=== PATIENT | female | born 1955 | race Caucasian/White ===

== ENCOUNTER 2020-04-19 21:36 | Emergency (ER) | payer MEDICARE, OTHER ==
[2020-04-19] MEDS ORDERED: ONDANSETRON INJ 4 MG/2 ML VIAL IV ONE (21:47)
[2020-04-19] MEDS ORDERED: SODIUM CHLORIDE 0.9% (FLUSH) 10 ML SYG IV PRN (21:47)
[2020-04-19] MEDS ORDERED: SODIUM CHLORIDE 0.9% 1000ML 1,000 ML IVS PRN (21:47)
[2020-04-19] MEDS ORDERED: DICYCLOMINE HCL INJ 20 MG/2 ML AMP IM ONE (21:49)
[2020-04-19] MEDS ORDERED: PROMETHAZINE HCL INJ 12.5 MG in SODIUM CHLORIDE 0.9% 50ML 50 ML IVPB ONE (21:53)
--- NOTE | 2020-04-19 22:11 | ED.PDOC ---
History of Present Illness - General Chief Complaint: GI Problem Stated Complaint: abd cramping, n/v Time Seen by Provider: 04/19/20 21:46 Information Source: patient, RN notes reviewed, Vital Signs reviewed Exam Limitations: no limitations - History of Present Illness Initial Comments: 65 y/o female with 2 days of copious diarrhea, foul smelling. She has been on antibiotics in the last 6 weeks. Nausea but no fever Abdominal Pain Onset Location: generalized abdomen Pain Radiation: no radiation Quality: moderate, cramping, intermittent Timing/Duration: days - 2 days Improving Factors: nothing Worsening Factors: nothing Associated Symptoms: diarrhea, nausea/vomiting, syncope, weakness Review of Systems - Review of Systems Constitutional: States: weakness EENTM: States: no symptoms reported Respiratory: States: no symptoms reported Cardiology: States: no symptoms reported Gastrointestinal/Abdominal: States: see HPI, abdominal pain, diarrhea, nausea Genitourinary: States: no symptoms reported Musculoskeletal: States: no symptoms reported Skin: States: no symptoms reported Neurological: States: no symptoms reported Family Medical History - Family History Mother Family History: Unknown Physical Exam - Physical Exam General Appearance: Obvious distress, Ill Appearing Eyes, Ears, Nose, Throat Exam: PERRL/EOMI, normal ENT inspection, pharynx normal Neck: non-tender, full range of motion, supple, normal inspection Respiratory: chest non-tender, lungs clear, normal breath sounds, no respiratory distress Cardiovascular/Chest: normal peripheral pulses, regular rate, rhythm, no murmur Peripheral Pulses: No deficit Gastrointestinal/Abdominal: normal bowel sounds, soft, tenderness Back Exam: normal inspection, no CVA tenderness Extremity: normal range of motion, non-tender, normal inspection, no pedal edema Neurologic: no motor/sensory deficits, alert, normal mood/affect, oriented x 3 Progress - Progress Progress: 04/19/20 23:47 Mrs Perse feels much better. She had been dx with strep pharyngitis and treated with a z pack 3 weeks ago. I will put her on flagyl and levaquin for 7 days - EKG/XRAY/CT EKG: Sinus, nonspecific ST T wave Chg Comments: prolonged QT, no LEOLA, QTc 466 Departure - Departure Clinical Impression: Enterocolitis due to Clostridioides difficile Diarrhea Qualifiers: Diarrhea type: presumed infectious Qualified Code(s): R19.7 - Diarrhea, unspecified Time of Disposition: 23:49 Disposition: Discharge to Home or Self Care Condition: Good Departure Forms: ED Discharge - Pt. Copy, Patient Portal Self Enrollment Referrals: RIAN ROJAS [Primary Care Provider] - 1-2 Weeks Prescriptions: Dicyclomine HCl [Bentyl] 20 mg PO Q6HRS PRN #20 tab PRN Reason: Abdominal Cramping metroNIDAZOLE [Flagyl] 500 mg PO BID #14 tab Levofloxacin [Levaquin] 750 mg PO DAILY #7 tablet Promethazine Tab [Phenergan Tablet] 0 mg PO .Q4H PRN #12 tab PRN Reason: Nausea -- Breakthrough Home Medications: Ambulatory Orders Dicyclomine HCl [Bentyl] 20 mg PO Q6HRS PRN #20 tab 04/19/20 Levofloxacin [Levaquin] 750 mg PO DAILY #7 tablet 04/19/20 Promethazine Tab [Phenergan Tablet] 0 mg PO .Q4H PRN #12 tab 04/19/20 metroNIDAZOLE [Flagyl] 500 mg PO BID #14 tab 04/19/20
--- NOTE | 2020-04-19 23:25 | CT ---
PROCEDURE: CT Abdomen/Pelvis w/Contrast CLINICAL HISTORY: 65 years Female abd pain and foul-smelling diarrhea TECHNIQUE: Contiguous axial images obtained through the abdomen and pelvis following administration of intravenous contrast. Coronal and sagittal reformatted images provided. This CT exam was performed according to our departmental dose-optimization program, which includes one or more of the following dose reduction techniques: automated exposure control, adjustment of the mA and/or kV according to patient size, and/or use of iterative reconstruction technique. COMPARISON: No prior exams provided for comparison. FINDINGS: There is moderate to severe diffuse inflammation of the majority of the jejunum and portions of the ileum. The terminal ileum appears normal. Suspected prior appendectomy. Distal colonic diverticulosis. No colonic inflammation. There is no bowel obstruction, pneumatosis, or free intraperitoneal air. There is a small amount of slightly complex free fluid in the lower abdomen and pelvis. Surgical clips in the upper abdomen. Prior right adrenalectomy Minimal bibasilar atelectasis. The liver, biliary tree, gallbladder, pancreas, spleen, left adrenal gland, uterus, adnexa, and urinary bladder are normal. Small left renal cyst. Focal scar in the right kidney. No hydronephrosis or pyelonephritis. Atherosclerosis without abdominal aortic aneurysm. No acute osseous abnormality. Small fat-containing umbilical hernia. IMPRESSION: Moderate to severe diffuse enteritis could be infectious or inflammatory. No bowel obstruction or perforation. Electronically signed by: Amanda Teixeira MD 04/19/2020 11:23 PM CDT
[2020-04-19] MEDS ORDERED: levoFLOXacin 500 MG TAB PO ONE (23:57)
[2020-04-19] MEDS ORDERED: metroNIDAZOLE 500 MG TAB PO ONE (23:57)
[2020-04-20 00:19] VITALS: BP 162/77; TEMP 96.9; O2SAT 96
== END 2020-04-20 00:14 | disposition home or self-care (01) ==
LOC: ER 21:36
DX: A04.72 Enterocolitis due to Clostridium difficile, not specified as recurrent (principal); R55 Syncope and collapse; R53.1 Weakness
CPT/HCPCS: 36415; 74177; 80048; 80076; 81001; 85025; 93005; A4216; J0500; J2550; J7030